=== PATIENT | female | born 1985 | race Caucasian/White ===

== ENCOUNTER 2018-06-07 15:36 | Emergency (ER) | payer OTHER ==
--- NOTE | 2018-06-07 15:55 | EDPHY ---
H & P Stated Complaint: 7-8 wks an abd pain and pressure intermitti=ent. Time Seen by Provider: 06/07/18 15:44 HPI/ROS: 33-year-old female presents complaining of sensation of abdominal pressure in various places in her abdomen and therefore is concerned because she is approximately 7 weeks by dates. She denies nausea vomiting, diarrhea, fevers, chills, vaginal bleeding. She has had 2 prior miscarriages and 1 live . Review of systems As per HPI General no fever no chills no weakness HEENT no eye pain no eye discharge. No eye redness, no sore throat Respiratory no cough, no shortness of breath Cardiac no chest pain, no peripheral edema GI no abdominal pain, no diarrhea, no constipation, no nausea, no vomiting no flank pain, no hematuria, no dysuria Musculoskeletal no myalgias, no joint pain Heme no easy bruising, no easy bleeding Endo no polyuria, no polydipsia Skin no rashes, no pruritus Neuro no syncope, no dizziness, no headaches Psych is no suicidal ideation, no homicidal ideation Source: Patient Exam Limitations: No limitations - Personal History LMP (Females 10-55): Current Tetanus Diphtheria and Acellular Pertussis (TDAP): Yes - Medical/Surgical History Hx Asthma: No Hx Chronic Respiratory Disease: No Hx Diabetes: No Hx Cardiac Disease: No Hx Renal Disease: No Hx Cirrhosis: No Hx Alcoholism: No Hx HIV/AIDS: No Hx Splenectomy or Spleen Trauma: No Other PMH: C section. - Family History Significant Family History: No pertinent family hx - Social History Smoking Status: Never smoked Alcohol Use: None Drug Use: None - Physical Exam Exam: 33-year-old female alert and oriented no acute distress nontoxic appearance, afebrile Atraumatic normocephalic Extraocular muscles intact, anicteric Neck supple no meningismus nontender Lungs clear to auscultation bilaterally Heart regular rate and rhythm without murmur rub or gallop Abdomen nondistended, bowel sounds present, soft nontender no masses Extremities no cyanosis clubbing or edema Skin no rash Constitutional: Initial Vital Signs Temperature (C) 36.6 C 06/07/18 15:41 Heart Rate 81 06/07/18 15:41 Respiratory Rate 14 06/07/18 15:41 Blood Pressure 119/73 06/07/18 15:41 O2 Sat (%) 100 06/07/18 15:41 O2 Delivery Mode Room Air Allergies/Adverse Reactions: No Known Allergies Allergy (Verified 06/07/18 15:48) Home Medications: Medication Instructions Recorded 1 tab PO DAILY 04/16/16 Medical Decision Making - Diagnostics Imaging Results: Imaging Impressions Obstetrics Ultrasound 06/07/18 16:09 Impression: 1. Single viable intrauterine gestation with size consistent with LMP dates. 2. FHR = 122 bpm 3. Results called and discussed with Paige Hill MD at 06/07/2018 17: 02. ED Course/Re-evaluation: Patient seen and evaluated for sensation of abdominal pressure during first- trimester . Ultrasound IUP consistent with patient states 6 weeks 4 days No subchorionic hemorrhage No ovarian cyst no masses Beta-hCG 24,000 CBC, BMP within normal limits Urine dip negative for signs of infection Impression IUP 1st trimester, normal Plan Discharge home Follow-up with bowling ball grader as planned later this week Differential Diagnosis: Differential diagnosis considered but not limited to: Intrauterine , urinary tract infection, molar , ectopic , missed , demise - Data Points Laboratory Results: 06/07/18 06/07/18 16:28 16:20 POC Sodium 138 mEq/L mEq/L (135-145) POC Potassium 3.0 mEq/L L mEq/L (3.3-5.0) POC Chloride 105.0 mEq/L mEq/L (97-110) POC Total CO2 25 mEq/L mEq/L (22-31) POC BUN 11 mg/dL mg/dL (7-23) POC Creatinine 0.7 mg/dL mg/dL (0.6-1.0) POC Glucose 84 mg/dL mg/dL (70-100) POC Calcium 9.3 mg/dL mg/dL (8.5-10.4) Beta HCG, Quant 38923.00 mIU/mL H mIU/mL (0.00-4.83) Point of Care Test Results: CBC CBC Collection Date 06/07/18 CBC Collection Time 16:25 WBC 6.6 RBC 4.36 HGB 12.7 HCT 38.1 PLT 222 Neut # 3.8 Neut 57.8 LYMPH # 2.3 LYMPH 34.2 Other WBC # 0.5 Other WBC 8.0 MCV 87.4 Chemistry 06/07/18 16:28 POC Sodium 138 mEq/L mEq/L (135-145) POC Potassium 3.0 mEq/L L mEq/L (3.3-5.0) POC Chloride 105.0 mEq/L mEq/L (97-110) POC Total CO2 25 mEq/L mEq/L (22-31) POC BUN 11 mg/dL mg/dL (7-23) POC Creatinine 0.7 mg/dL mg/dL (0.6-1.0) POC Glucose 84 mg/dL mg/dL (70-100) POC Calcium 9.3 mg/dL mg/dL (8.5-10.4) Urine Dip Collection Date 06/07/18 Collection Time 17:31 Specific [place] (1.002-1.030) 1.015 PH (5.0-7.5) 7.0 Leukocytes (Negative) Negative Nitrites (Negative) Negative Protein (Negative) Negative Glucose (Negative) Negative Ketones (Negative) Negative Urobilnogen (0.2-1.0 EU) 0.2 Bilirubin (Negative) Negative Blood (Negative) Negative Departure - Departure Disposition: Home, Routine, Self-Care Clinical Impression: Intrauterine normal Condition: Good Instructions: First Trimester (ED) Referrals: Igor Mcneil MD [Primary Care Provider] - As per Instructions
[2018-06-07 17:42] VITALS: BP 128/71
== END 2018-06-07 17:31 | disposition home or self-care (01) ==
LOC: CED 15:36
DX: R10.9 Unspecified abdominal pain (principal); Z3A.01 Less than 8 weeks gestation of pregnancy
CPT/HCPCS: 80048-PO